=== PATIENT | female | born 1985 | race Caucasian/White ===

== ENCOUNTER 2023-06-30 06:54 | Emergency (ER) | payer OTHER ==
[2023-06-30] MEDS ORDERED: NA CHLORIDE 0.9% 1,000 ML ONE (07:20)
[2023-06-30 07:53] LABS: Absolute Eosinophils 0.1 K/uL (0-0.5); Absolute Lymphocytes (CBC) 0.6 K/uL (0.7-4.9); Absolute Monocytes 1.1 K/uL (0.1-1.3); Absolute Neutrophil 9.6 K/uL (1.8-8.0); Basophils % 0.3 % (0-1.3); Eosinophils % 0.9 % (0-4.4); Hematocrit 45.7 % (36.0-45.0); Hemoglobin 15.1 g/dL (12.0-15.0); Lymphocytes % 4.9 % (15.3-44.8); MCH 29.6 pg (27.0-35.0); MCHC 33.1 g/dL (32.0-36.0); MCV 89.2 fL (80-100); MPV 9.6 fL (7.6-11.3); Monocytes % 9.4 % (3.3-12.3); Neutrophils % 84.5 % (41.7-73.7); Platelets 215 thou/uL (152-406); RBC Red Blood Cell Count 5.12 M/uL (3.86-4.86); Red Cell Distribution Width 12.5 % (12.1-15.2); Specific Gravity 1.014 (1.005-1.030)
[2023-06-30 07:55] LABS: Specific Gravity 1.014 (1.005-1.030); Sqamous Epithelial <5 /HPF (None Seen); Urine Bacteria None Seen /HPF (<20); Urine Bilirubin NEGATIVE (Negative); Urine Blood Negative (Negative); Urine Clarity Clear (Clear); Urine Color Light-Yellow (Yellow); Urine Culture Reflex Order NOT NEEDED; Urine Glucose NEGATIVE (Negative); Urine Ketones NEGATIVE (Negative); Urine Microscopic Reflex YN ORDER UMIC; Urine Mucus Slight /HPF (None Seen); Urine Nitrite NEGATIVE (Negative); Urine Protein NEGATIVE (Negative); Urine RBC <5 /HPF (None Seen); Urine Urobilinogen Normal (Normal); Urine WBC <5 /HPF (<5)
[2023-06-30 08:12] LABS: Albumin 3.5 g/dL (3.4-5.0); Bilirubin Total 0.6 mg/dL (0.2-1.0); Globulin 3.4 g/dL (2.3-3.5); Protein, Total 6.9 g/dL (6.4-8.2)
[2023-06-30] MEDS ORDERED: KETOROLAC 30 MG/ML INJ ONE (08:18)
--- NOTE | 2023-06-30 08:26 | RAD REPORT ---
EXAM DESCRIPTION: CTStone Protocol - 06/30/2023 8:06 am CLINICAL HISTORY: flank pain / stone protocol COMPARISON: No comparisons TECHNIQUE: CT of the abdomen and pelvis was performed. All CT scans are performed using dose optimization technique as appropriate and may include automated exposure control or mA/KV adjustment according to patient size. FINDINGS: Lower chest: Mild circumferential thickened distal esophagus. Liver: No acute abnormality or suspicious lesions. Biliary: No biliary ductal dilatation. Stomach: No significant focal abnormality. Duodenum: No significant focal abnormality. Pancreas: No significant abnormality. Spleen: No significant abnormality. Adrenal: No suspicious lesions. Kidney/ureter: No hydronephrosis. 3 mm stone in lower pole left kidney. Mild right-sided ureteral ful lness. Question right-sided periureteric stranding. Retroperitoneum: No retroperitoneal adenopathy. Vascular: No aneurysm. Bowel: Normal appendix. Moderate formed stool.. Peritoneum: Trace pelvic free fluid. Small fat containing umbilical hernia. Bladder: Mild bladder wall stranding. Reproductive: Right sided Bartholin gland cyst. Bones: No acute fracture. Other: n/a IMPRESSION: Mild right-sided ureteral fullness and questionable ureteral stranding could be secondar y to an ascending urinary tract infection. A recently passed stone could appear similar. Nonobstructi ng stone is present in the left kidney. No hydronephrosis . Normal appendix.
--- NOTE | 2023-06-30 08:38 | EDPHYS ---
Physician Documentation [facility] Name: Liyah Crespo Age: 38 yrs Sex: Female : 1985 Arrival Date: 06/30/2023 Time: 06:54 Bed 6 Private MD: ED Physician Bam Espino HPI: 06/29 07:20 This 37 yrs old Female presents to ER via Ambulatory with complaints of Possible Kidney sp3 Stone, Pain. 07:20 37-year-old female with history of kidney stones and urosepsis now presents to the ED sp3 with chief complaint right flank pain consistent with prior kidney stone episodes. She also think she may have a urinary tract infection based on how she feels. She does deny urinary frequency or burning. She also denies any anterior abdominal pain, diarrhea, fever, shortness of breath, chest pain, headache, URI symptoms, known sick contacts, rash, syncope, near syncope or any other signs or symptoms on ROS at this time. She does endorse mild nausea as well.. Historical: - Allergies: 07:14 No Known Allergies; ll1 - PMHx: 07:14 kidney stones; ll1 - PSHx: 07:14 kidney stent; ll1 - Immunization history:: Adult Immunizations up to date. - Social history:: Smoking status: Patient denies any tobacco usage or history of. ROS: 07:20 Constitutional: Negative for fever, chills, and weight loss, Eyes: Negative for injury, sp3 pain, redness, and discharge, Neck: Negative for injury, pain, and swelling, Cardiovascular: Negative for chest pain, palpitations, and edema, Respiratory: Negative for shortness of breath, cough, wheezing, and pleuritic chest pain, Back: Negative for injury and pain, MS/Extremity: Negative for injury and deformity, Skin: Negative for injury, rash, and discoloration, Neuro: Negative for headache, weakness, numbness, tingling, and seizure, Psych: Negative for depression, anxiety, suicide ideation, homicidal ideation, and hallucinations, Allergy/Immunology: Negative for hives, rash, and allergies, Endocrine: Negative for neck swelling, polydipsia, polyuria, polyphagia, and marked weight changes, Hematologic/Lymphatic: Negative for swollen nodes, abnormal bleeding, and unusual bruising, 07:20 All other systems are negative, Exam: 07:21 Constitutional: This is a well developed, well nourished patient who is awake, alert, sp3 and in no acute distress. Head/Face: Normocephalic, atraumatic. Eyes: Pupils equal round and reactive to light, extra-ocular motions intact. Lids and lashes normal. Conjunctiva and sclera are non-icteric and not injected. Cornea within normal limits. Periorbital areas with no swelling, redness, or edema. ENT: Nares patent. No nasal discharge, no septal abnormalities noted. External auditory canals are clear. Oropharynx with no redness, swelling, or masses, exudates, or evidence of obstruction, uvula midline. Mucous membranes moist. Neck: Trachea midline, no thyromegaly or masses palpated, and no cervical lymphadenopathy. Supple, full range of motion without nuchal rigidity, or vertebral point tenderness. No Meningismus. Chest/axilla: Normal chest wall appearance and motion. Nontender with no deformity. No lesions are appreciated. Cardiovascular: Regular rate and rhythm with a normal S1 and S2. No gallops, murmurs, or rubs. Normal PMI, no JVD. No pulse deficits. Respiratory: Lungs have equal breath sounds bilaterally, clear to auscultation and percussion. No rales, rhonchi or wheezes noted. No increased work of breathing, no retractions or nasal flaring. Skin: Warm, dry with normal turgor. Normal color with no rashes, no lesions, and no evidence of cellulitis. MS/ Extremity: Pulses equal, no cyanosis. Neurovascular intact. Full, normal range of motion. Neuro: Awake and alert, GCS 15, oriented to person, place, time, and situation. Cranial nerves II-XII grossly intact. Motor strength 5/5 in all extremities. Sensory grossly intact. Cerebellar exam normal. Normal gait. Psych: Awake, alert, with orientation to person, place and time. Behavior, mood, and affect are within normal limits. 07:21 Abdomen/GI: No anterior abdominal pain or peritoneal signs. Right flank pain and CVA tenderness noted., Vital Signs: 07:15 BP 123 / 80; Pulse 102; Resp 17; Temp 98.7; Pulse Ox 99% on R/A; Weight 74.84 kg; ll1 Height 5 ft. 5 in. ; Pain 7/10; 07:30 BP 109 / 73; Pulse 87; Resp 18; Pulse Ox 98% on R/A; ld1 07:15 Body Mass Index 27.46 (74.84 kg, 165.1 cm) ll1 07:15 Pain Scale: Adult ll1 MDM: 07:06 Patient medically screened. sp3 07:21 Data reviewed: vital signs, nurses notes, lab test result(s), radiologic studies. ED sp3 course: 38-year-old female with right flank pain. Differential diagnosis includes UTI, kidney stone, both, constipation, functional abdominal pain. I am not highly suspicious for acute surgical pathology including appendicitis, biliary pathology, aortic pathology, [employer] pathology or any other pathways. Workup will include laboratory values, UA, CT scan of the abdomen pelvis and a kidney stone protocol. Ketorolac and normal saline for initial symptomatic control with further layering of medications as needed/indicated.. 08:36 ED course: Patient with stranding and mild dilatation consistent with recently passed sp3 kidney stone. This according to the radiology report could also demonstrate descending infection however urine demonstrates no signs of overt infection. Will go ahead and prophylactically place patient on Bactrim 3 days along with NSAID and follow-up with urology.. 06/29 07:07 Order name: CBC with Diff; Complete Time: 08:19 sp3 06/29 07:07 Order name: CMP; Complete Time: 08:19 sp3 06/29 07:07 Order name: Lipase; Complete Time: 08:19 sp3 06/29 07:07 Order name: Test, Urine; Complete Time: 08:19 sp3 06/29 07:07 Order name: Urinalysis w/ reflexes; Complete Time: 08:19 sp3 06/29 07:58 Order name: Stone Protocol; Complete Time: 08:27 EDMS 06/29 07:07 Order name: IV Saline Lock; Complete Time: 07:31 sp3 06/29 07:07 Order name: Labs collected and sent; Complete Time: 07:31 sp3 Administered Medications: 07:32 Drug: NS 0.9% IV 1000 ml IV at 1 bolus Per protocol; 1000 mL bolus Route: IV; Rate: 1 ld1 bolus; Site: right antecubital; 08:21 Drug: TORadol - Ketorolac IVP 15 mg IVP once Route: IVP; Site: right forearm; bp Disposition Summary: 06/30/23 08:37 Discharge Ordered Notes: Location: Home sp3 Condition: Stable sp3 Diagnosis - Ureterolithiasis, resolved, right flank pain sp3 Followup: sp3 - With: Spencer Carranza MD - When: Upon discharge from the Emergency Department - Reason: Recheck today's complaints Discharge Instructions: - Discharge Summary Sheet sp3 - Kidney Stones sp3 Forms: - Medication Reconciliation Form sp3 - Thank You Letter sp3 - Antibiotic Education sp3 - Prescription Opioid Use sp3 - Patient Portal Instructions sp3 - Leadership Thank You Letter sp3 Prescriptions: - Diclofenac Sodium 75 mg Oral Tablet Sustained Release - take 1 tablet ORAL route 2 times per day; 30 tablet; Refills: 0, Product sp3 Selection Permitted - Bactrim DS 800-160 mg Oral Tablet - take 1 tablet ORAL route every 12 hours for 3 days; 6 tablet; Refills: 0, sp3 Product Selection Permitted Signatures: Dispatcher [employer] EDJuan Jose Warner RN RN bp Lewis, Lynsay, RN RN ll1 Demetrice Barker RN RN ld1 Bam Espino MD MD sp3 Corrections: (The following items were deleted from the chart) 07:36 07:08 Urinalysis+U.LAB.BRZ ordered. EDMS EDMS 07:58 07:08 Abdomen Pelvis Wo Con+CT.RAD.BRZ ordered. EDMS EDMS
--- NOTE | 2023-06-30 08:38 | ER ---
Nurse's Notes [facility] Name: Liyah Crespo Age: 38 yrs Sex: Female : 1985 Arrival Date: 06/30/2023 Time: 06:54 Bed 6 Private MD: Diagnosis: Ureterolithiasis, resolved, right flank pain Presentation: 06/29 07:15 Chief complaint: Patient states: Low back pain, N/V started at 0130 AM getting worse. ll1 No fever. Worried about kidney stone or infection. Coronavirus screen: Client denies travel out of the [place] in the last 14 days. At this time, the client does not indicate any symptoms associated with coronavirus-19. Ebola Screen: Patient denies travel to an Ebola-affected area in the 21 days before illness onset. Initial Sepsis Screen: Does the patient meet any 2 criteria? No. Patient's initial sepsis screen is negative. Does the patient have a suspected source of infection? No. Patient's initial sepsis screen is negative. Risk Assessment: Do you want to hurt yourself or someone else? Patient reports no desire to harm self or others. Onset of symptoms was June 30, 2023. 07:15 Method Of Arrival: Ambulatory ll1 07:15 Acuity: RAYNA 3 ll1 Historical: - Allergies: 07:14 No Known Allergies; ll1 - PMHx: 07:14 kidney stones; ll1 - PSHx: 07:14 kidney stent; ll1 - Immunization history:: Adult Immunizations up to date. - Social history:: Smoking status: Patient denies any tobacco usage or history of. Assessment: 08:27 General: Appears in no apparent distress. comfortable, Behavior is calm, cooperative, ld1 appropriate for age. Pain: Complains of pain in low back area Pain does not radiate. Pain currently is 8 out of 10 on a pain scale. Quality of pain is described as throbbing, Pain began suddenly, Is continuous. Neuro: Level of Consciousness is awake, alert, obeys commands, Oriented to person, place, time, situation. Cardiovascular: Capillary refill < 3 seconds Patient's skin is warm and dry. Respiratory: Airway is patent Respiratory effort is even, unlabored. GI: Abdomen is flat, non-distended, Bowel sounds present X 4 quads. Abd is soft Abd is non tender. GI: No signs and/or symptoms were reported involving the gastrointestinal system. : No signs and/or symptoms were reported regarding the genitourinary system. EENT: No signs and/or symptoms were reported regarding the EENT system. Derm: No signs and/or symptoms reported regarding the dermatologic system. Musculoskeletal: No signs and/or symptoms reported regarding the musculoskeletal system. Vital Signs: 07:15 BP 123 / 80; Pulse 102; Resp 17; Temp 98.7; Pulse Ox 99% on R/A; Weight 74.84 kg; ll1 Height 5 ft. 5 in. ; Pain 7/10; 07:30 BP 109 / 73; Pulse 87; Resp 18; Pulse Ox 98% on R/A; ld1 07:15 Body Mass Index 27.46 (74.84 kg, 165.1 cm) ll1 07:15 Pain Scale: Adult ll1 ED Course: 07:01 Patient arrived in ED. gm2 07:04 Arm band placed on Patient placed in an exam room, on a stretcher. ll1 07:06 Bam Espino MD is Attending Physician. sp3 07:06 Demetrice Barker, JESUS is Primary Nurse. ld1 07:17 Triage completed. ll1 07:33 Inserted saline lock: 20 gauge in right antecubital area, using aseptic technique. ld1 Blood collected. 07:35 CBC with Diff Sent. bp 07:35 CMP Sent. bp 07:35 Lipase Sent. bp 07:35 Test, Urine Sent. bp 08:08 Stone Protocol In Process Unspecified. EDMS 08:37 Spencer Carranza MD is Referral Physician. sp3 Administered Medications: 07:32 Drug: NS 0.9% IV 1000 ml IV at 1 bolus Per protocol; 1000 mL bolus Route: IV; Rate: 1 ld1 bolus; Site: right antecubital; 08:21 Drug: TORadol - Ketorolac IVP 15 mg IVP once Route: IVP; Site: right forearm; bp Outcome: 08:37 Discharge ordered by . sp3 09:50 Patient left the ED. ll1 Signatures: Dispatcher [employer] EDMS Juan Jose Andino RN RN bp Lewis, Lynsay, RN RN 1 Demetrice Barker RN RN 1 Bam Espino MD MD sp3 Gabby Ochoa gm2 Corrections: (The following items were deleted from the chart) 07:35 07:33 TORadol - Ketorolac IVP 15 mg IVP in right antecubital ld1 bp 07:36 07:36 TORadol - Ketorolac IVP 15 mg IVP in right antecubital ld1 bp 07:36 07:33 Urinalysis+U.LAB.BRZ drawn and sent. ld1 EDMS
[2023-06-30 10:39] VITALS: BP 123/80; TEMP 98.7; O2SAT 99
== END 2023-06-30 09:50 | disposition home or self-care (01) ==
LOC: EDBD 06:54 → ER 06:54
DX: N20.1 Calculus of ureter (principal); Z87.442 Personal history of urinary calculi
CPT/HCPCS: 85025; 81001; 36415; 81025; 83690; 80053; 76377; 74176; 96374; 99284; J7030